=== PATIENT | female | born 1985 | race Two or more races ===

== ENCOUNTER 2024-10-23 21:23 | Emergency (ER) | payer MEDICAID ==
[~2024-10-23] VITALS: Ht 157.5 cm; Wt 136.1 kg
[2024-10-23 22:35] LABS: BASOPHILS # (AUTO) 0.1 K/uL (0.0-0.2); BASOPHILS % (AUTO) 0.7 % (0.0-2.0); EOSINOPHILS # (AUTO) 0.3 K/uL (0.0-0.7); EOSINOPHILS % (AUTO) 2.8 % (0.0-6.0); HEMATOCRIT 41 % (33-45); LYMPHOCYTES # (AUTO) 2.3 K/uL (0.8-4.8); LYMPHOCYTES % (AUTO) 23.4 % (20.0-44.0); MEAN CORPUSCULAR HEMOGLOBIN 29 PG (26.0-33.0); MEAN CORPUSCULAR HGB CONC 34 g/dl (31.0-36.0); MEAN CORPUSCULAR VOLUME 86 fL (82-100); MONOCYTES # (AUTO) 1.1 K/uL (0.1-1.30); MONOCYTES % (AUTO) 10.7 % (2.0-12.0); NEUTROPHILS # (AUTO) 6.2 K/uL (1.8-8.9); NEUTROPHILS % (AUTO) 62.4 % (43.0-81.0); PLATELET COUNT (AUTO) 317 K/uL (150-450); RED BLOOD CELL COUNT(AUTO) 4.77 MIL/uL (4.0-5.2); RED CELL DISTRIBUTION WIDTH 13.5 % (11.5-15.0)
[2024-10-23] MEDS: IV NS 0.9% 1,000 ML BAG IV ONE (22:44)
[2024-10-23 22:45] LABS: CALCIUM, SERUM 8.9 mg/dL (8.5-10.1); CARBON DIOXIDE 27 mmol/L (21-32); CHLORIDE 104 mmol/L (98-107); CREATININE 1.1 mg/dL (0.6-1.3); GLUCOSE 91 mg/dL (74-106); POTASSIUM 3.9 mmol/L (3.5-5.1); SODIUM SERUM 139 mmol/L (136-145); UREA NITROGEN, BLOOD 9 mg/dL (7-18)
[2024-10-23 22:57] LABS: ALANINE AMINOTRANSFERASE 40 U/L (12-78); ALBUMIN 3.8 g/dL (3.4-5.0); ALKALINE PHOSPHATASE 62 U/L (46-116); ASPARTATE AMINOTRANSFERASE 20 U/L (15-37); BILIRUBIN,DIRECT 0.1 mg/dL (0.0-0.2); BILIRUBIN,TOTAL 0.4 mg/dL (0.2-1.0); NT-PRO BNP 23 pg/mL (0-125); TOTAL PROTEIN, SERUM 7.4 g/dL (6.4-8.2)
[2024-10-24 01:13] VITALS: BP 156/90; TEMP 98.1; O2SAT 99
== END 2024-10-24 01:13 | disposition home or self-care (01) ==
LOC: ER 21:28
DX: R20.0 Anesthesia of skin (principal); R07.89 Other chest pain
CPT/HCPCS: 36415; 70450-TC; 71045-TC; 80048-TC; 80076-TC; 82962-TC; 83880; 84484-TC; 84702-TC; 85025-TC

== ENCOUNTER 2024-11-12 18:39 | Inpatient (IN) | payer MEDICAID ==
[~2024-11-12] VITALS: Ht 154.9 cm; Wt 124.7 kg
[2024-11-12] MEDS: IV NS 0.9% 1,000 ML BAG IV ONE (20:30)
[2024-11-12 20:55] LABS: BASOPHILS % (AUTO) 0.4 % (0.0-2.0); EOSINOPHILS # (AUTO) 0.3 K/uL (0.0-0.7); EOSINOPHILS % (AUTO) 3.1 % (0.0-6.0); HEMATOCRIT 44 % (33-45); HEMOGLOBIN 14.6 g/dL (11.5-14.8); LYMPHOCYTES % (AUTO) 32.3 % (20.0-44.0); MEAN CORPUSCULAR HEMOGLOBIN 29 PG (26.0-33.0); MEAN CORPUSCULAR HGB CONC 33 g/dl (31.0-36.0); MEAN CORPUSCULAR VOLUME 87 fL (82-100); MONOCYTES # (AUTO) 0.9 K/uL (0.1-1.30); MONOCYTES % (AUTO) 9.8 % (2.0-12.0); NEUTROPHILS % (AUTO) 54.4 % (43.0-81.0); PLATELET COUNT (AUTO) 293 K/uL (150-450); RED BLOOD CELL COUNT(AUTO) 5.03 MIL/uL (4.0-5.2); RED CELL DISTRIBUTION WIDTH 13.7 % (11.5-15.0); WHITE BLOOD COUNT (AUTO) 9.2 K/uL (4.3-11.0)
[2024-11-12 21:15] LABS: MAGNESIUM 2.2 mg/dL (1.8-2.4)
[2024-11-12 21:17] LABS: CALCIUM, SERUM 9.3 mg/dL (8.5-10.1); CARBON DIOXIDE 26 mmol/L (21-32); CHLORIDE 106 mmol/L (98-107); GLUCOSE 82 mg/dL (74-106); POTASSIUM 3.8 mmol/L (3.5-5.1); SODIUM SERUM 141 mmol/L (136-145); UREA NITROGEN, BLOOD 13 mg/dL (7-18)
[2024-11-12 21:24] LABS: ALANINE AMINOTRANSFERASE 34 U/L (12-78); ALBUMIN 3.3 g/dL (3.4-5.0); ALKALINE PHOSPHATASE 62 U/L (46-116); ASPARTATE AMINOTRANSFERASE 19 U/L (15-37); BILIRUBIN,DIRECT 0.1 mg/dL (0.0-0.2); BILIRUBIN,TOTAL 0.2 mg/dL (0.2-1.0)
[2024-11-12 21:29] LABS: THYROID STIMULATING HORMONE 2.67 uIU/mL (0.358-3.74)
[2024-11-12] MEDS: ASPIRIN 81 MG TAB.CHEW PO ONE (22:00)
[2024-11-12 22:04] LABS: APPEARANCE,URINE SLIGHTLY CLOUDY (CLEAR); BILIRUBIN,URINE NEGATIVE (NEGATIVE); BLOOD, URINE 3+ Ery/uL (NEGATIVE); COLOR,URINE YELLOW (YELLOW); KETONES,URINE NEGATIVE (NEGATIVE); LEUKOCYTE ESTERASE ,URINE TRACE (NEGATIVE); NITRITE, URINE NEGATIVE (NEGATIVE); PH,URINE 5.5 (5.0-8.0); PROTEIN,URINE NEGATIVE (NEGATIVE); UGLUCOSE NEGATIVE (NEGATIVE); UROBILINOGEN,URINE 0.2 EU/dL (0.2)
[2024-11-12] MEDS ORDERED: ASPIRIN 81 MG TAB.CHEW ONE (22:06)
[2024-11-12 22:13] LABS: AMPHETAMINE, URINE NEGATIVE (NEGATIVE); BARBITURATE, URINE NEGATIVE (NEGATIVE); BENZODIAZEPINE, URINE NEGATIVE (NEGATIVE); CANNABINOID, URINE NEGATIVE (NEGATIVE); COCCAINE, URINE NEGATIVE (NEGATIVE); OPIATE, URINE NEGATIVE (NEGATIVE); PHENCYCLIDINE SCREEN,URINE NEGATIVE (NEGATIVE)
[2024-11-12 22:37] LABS: ADD URINE CULTURE YES; BACTERIA,URINE Many /HPF (None Seen); SQUAMOUS EPITHELIAL CELL,UR Moderate /HPF (None Seen)
[2024-11-12 22:48] LABS: PREGNANCY TEST URINE QUAL NEGATIVE (NEGATIVE)
[2024-11-12] MEDS: hydrOXYzine PAMOATE 25 MG CAPSULE PO ONE (23:00)
[2024-11-12] MEDS: hydrOXYzine PAMOATE 25 MG CAPSULE ONE (23:11)
[2024-11-12 23:50] VITALS: BP 131/90; TEMP 97.5; O2SAT 100
[2024-11-13] MEDS ORDERED: ONDANSETRON HCL/PF 4 MG/2 ML VIAL IV PRN (00:30)
[2024-11-13] MEDS ORDERED: MORPHINE SULFATE INJ 4 MG/ML DISP.SYRIN IV PRN (00:30)
[2024-11-13] MEDS ORDERED: ACETAMINOPHEN 325 MG TABLET PO PRN (00:30)
[2024-11-13] MEDS ORDERED: MORPHINE SULFATE INJ 2 MG/ML DISP.SYRIN IV PRN (00:30)
[2024-11-13] MEDS ORDERED: ZOLPIDEM TARTRATE 5 MG TABLET PO PRN (00:30)
[2024-11-13 04:00] VITALS: BP 129/74; TEMP 98.1; O2SAT 100
[2024-11-13 07:00] VITALS: BP 121/89; TEMP 98.2; O2SAT 98
[2024-11-13 07:24] LABS: BASOPHILS % (AUTO) 0.5 % (0.0-2.0); EOSINOPHILS # (AUTO) 0.3 K/uL (0.0-0.7); HEMATOCRIT 40 % (33-45); HEMOGLOBIN 13.7 g/dL (11.5-14.8); LYMPHOCYTES # (AUTO) 2.6 K/uL (0.8-4.8); LYMPHOCYTES % (AUTO) 36.8 % (20.0-44.0); MEAN CORPUSCULAR HEMOGLOBIN 29 PG (26.0-33.0); MEAN CORPUSCULAR HGB CONC 34 g/dl (31.0-36.0); MEAN CORPUSCULAR VOLUME 86 fL (82-100); MONOCYTES # (AUTO) 0.8 K/uL (0.1-1.30); MONOCYTES % (AUTO) 10.8 % (2.0-12.0); NEUTROPHILS # (AUTO) 3.3 K/uL (1.8-8.9); NEUTROPHILS % (AUTO) 47.9 % (43.0-81.0); PLATELET COUNT (AUTO) 278 K/uL (150-450); RED BLOOD CELL COUNT(AUTO) 4.69 MIL/uL (4.0-5.2); RED CELL DISTRIBUTION WIDTH 13.7 % (11.5-15.0)
[2024-11-13 07:37] LABS: CALCIUM, SERUM 8.7 mg/dL (8.5-10.1); CREATININE 0.9 mg/dL (0.6-1.3); POTASSIUM 4.1 mmol/L (3.5-5.1)
[2024-11-13 08:33] LABS: THYROID STIMULATING HORMONE 2.45 uIU/mL (0.358-3.74)
[2024-11-13] MEDS: ASPIRIN 325 MG TABLET PO SCH (09:04)
[2024-11-13] MEDS ORDERED: MECL-167 PO (10:14)
[2024-11-13] MEDS: CEFTRIAXONE 1 G in IV D5W 50 ML IV SCH (10:54)
[2024-11-13 11:29] VITALS: BP 123/87; TEMP 97.5; O2SAT 98
[2024-11-13 16:00] VITALS: BP 114/77; TEMP 97.9; O2SAT 100
[2024-11-13 20:00] VITALS: BP 110/72; TEMP 97.9; O2SAT 96
[2024-11-13] MEDS: ATORVASTATIN 40 MG TABLET PO SCH (21:04)
[2024-11-14] VITALS: BP 129/88; TEMP 97.9; O2SAT 100
[2024-11-14 04:00] VITALS: BP 132/95; TEMP 98.1; O2SAT 99
[2024-11-14 07:00] VITALS: BP 117/75; TEMP 97.7; O2SAT 96
[2024-11-14 11:32] VITALS: BP 133/91; TEMP 98.1; O2SAT 98
[2024-11-14 16:00] VITALS: BP 125/91; TEMP 98.1; O2SAT 96
[2024-11-14 20:54] VITALS: BP 114/79; TEMP 98.1; O2SAT 98
[2024-11-14] MEDS ORDERED: ALPRAZOLAM 0.25 MG TABLET PO PRN (23:00)
[2024-11-15 00:50] VITALS: BP 125/90; TEMP 97.7; O2SAT 99
[2024-11-15 08:21] VITALS: BP 113/67; TEMP 97.8; O2SAT 97
[2024-11-15] MEDS ORDERED: LEVO250T59 PO (08:54)
[2024-11-15] MEDS ORDERED: IOHEXOL-350 100 ML VIAL IV ONE (09:57)
[2024-11-15] MEDS ORDERED: IV NS 0.9% 250 ML IV ONE (09:57)
[2024-11-15] MEDS ORDERED: CT SWABBABLE VALVE TRANS SET 1 EA INFUS.SET MC ONE (09:57)
[2024-11-15] MEDS: METOPROLOL TARTRATE INJ 5 MG/5 ML AMPUL IVP PRN (10:15)
[2024-11-15 10:25] VITALS: BP 146/98
[2024-11-15] MEDS: NITROGLYCERIN 0.4 MG/TAB BOTTLE SL ONE (10:25)
[2024-11-15 12:07] LABS: *ANA ANTI-CENTROMERE B AB <0.2 AI (0.0-0.9); *ANA ANTI-DNA(DS) AB, QN <1 IU/mL (0-9); *ANA ANTI-JO-1 <0.2 AI (0.0-0.9); *ANA ANTICHROMATIN ANTIBODY <0.2 AI (0.0-0.9); *ANA RNP ANTIBODIES 0.3 AI (0.0-0.9); *ANA SJOGREN'S ANTI-SS-A <0.2 AI (0.0-0.9); *ANA SJOGREN'S ANTI-SS-B <0.2 AI (0.0-0.9); *ANAANTI-SCLERODERMA-70 AB <0.2 AI (0.0-0.9); *ANASMITH AB <0.2 AI (0.0-0.9)
[2024-11-16 14:12] LABS: *ANCA ATYPICAL p-ANCA <1:20 titer (Neg:<1:20); *ANCA CYTOPLASMIC (C-ANCA) <1:20 titer (Neg:<1:20); *ANCA PERINUCLEAR (P-ANCA) <1:20 titer (Neg:<1:20)
[2024-11-17 17:10] LABS: ANTI-MPO ANTIBODIES <0.2 units (0.0-0.9); ANTI-PR3 ANTIBODIES <0.2 units (0.0-0.9)
== END 2024-11-15 18:19 | disposition home or self-care (01) | DRG 663 ==
LOC: ER 18:43 → TELE 23:29 → MED 11-15 07:03
PROVIDERS: ADMIT Internal Medicine; ATTEND Internal Medicine
DX: D89.89 Other specified disorders involving the immune mechanism, not elsewhere classified (principal); Z68.43 Body mass index [BMI] 50.0-59.9, adult; N39.0 Urinary tract infection, site not specified; E66.9 Obesity, unspecified; R79.89 Other specified abnormal findings of blood chemistry; F32.A Depression, unspecified; Z88.8 Allergy status to other drugs, medicaments and biological substances
CPT/HCPCS: 36415; 71045-TC; 75574; 80048-TC; 80061-TC; 80076-TC; 81001; 82550-TC; 83520; 83735-TC; 84443-TC; 84484-TC; 84703-TC; 85025-TC; 85378-TC; 85652-TC; 86162; 86225; 86235; 86256; 93307-TC; A4223; G0378; J0696; J3490; J7030; J7050; J7060; Q0177; Q9967

== ENCOUNTER 2024-12-03 23:52 | Emergency (ER) | payer MEDICAID ==
[~2024-12-03 23:52] MED LIST: LEVO250T59 PO; MECL-167 PO
== END 2024-12-04 01:37 | disposition left against medical advice (07) ==
LOC: ER 23:57
DX: R22.43 Localized swelling, mass and lump, lower limb, bilateral (principal); Z53.21 Procedure and treatment not carried out due to patient leaving prior to being seen by health care provider